=== PATIENT | female | born 1960 | race Two or more races ===

== ENCOUNTER 2019-11-10 13:50 | Outpatient (CLI) | payer OTHER, SELFPAY ==
[2019-11-10 15:15] LABS: Alanine Aminotransferase 24 U/L (4-35); Albumin Level 4.9 g/dL (3.5-5.1); Alkaline Phosphatase 80 U/L (38-126); Aspartate Amino Transferase 38 U/L (14-36); Bilirubin,Total 0.6 mg/dL (0.2-1.3)
== END 2019-11-10 13:51 | disposition home or self-care (01) ==
PROVIDERS: PCP Family Medicine; Visit Provider Family Medicine
DX: R77.8 Other specified abnormalities of plasma proteins (principal)
CPT/HCPCS: 36415; 80076

== ENCOUNTER 2020-01-09 08:12 | Outpatient (CLI) | payer OTHER, SELFPAY ==
--- NOTE | ~2020-01-09 | MM_ITS ---
EXAMINATION: MM screening isaak BI w minnie HISTORY: Screening mammogram TECHNIQUE: Craniocaudal and mediolateral oblique 3-D tomosynthesis images were obtained and synthetic 2-D images were generated. CAD analysis was submitted and interpreted. COMPARISON: No prior mammogram is available for comparison at this institution. BREAST PARENCHYMAL COMPOSITION: The breasts are heterogeneously dense, which may obscure small masses . FINDINGS: There is no evidence of suspicious mass, calcification, or architectural distortion to sugg est malignancy in either breast. There has been no suspicious interval change. IMPRESSION: 1. No mammographic evidence of malignancy. 2. Recommend routine screening mammography in one year. BI-RADS Category 1: Negative Reviewed, dictated and finalized at location A.
== END 2020-01-09 08:13 | disposition home or self-care (01) ==
PROVIDERS: PCP Family Medicine
DX: Z12.31 Encounter for screening mammogram for malignant neoplasm of breast (principal)
CPT/HCPCS: 77063; 77067

== ENCOUNTER 2021-01-21 09:08 | Outpatient (CLI) | payer OTHER, SELFPAY ==
--- NOTE | ~2021-01-21 | MM_ITS ---
EXAMINATION: MM screening isaak BI w minnie HISTORY: Screening mammogram TECHNIQUE: Craniocaudal and mediolateral oblique 3-D tomosynthesis images were obtained and synthetic 2-D images were generated. CAD analysis was submitted and interpreted. COMPARISON: 01/09/2020, 11/01/2018, 08/24/2017 bilateral digital screening mammogram examinations BREAST PARENCHYMAL COMPOSITION: The breasts are heterogeneously dense, which may obscure small masses . FINDINGS: There is no evidence of suspicious mass, calcification, or architectural distortion to sugg est malignancy in either breast. There has been no suspicious interval change. IMPRESSION: 1. No mammographic evidence of malignancy. 2. Recommend routine screening mammography in one year. BI-RADS Category 1: Negative Reviewed, dictated and finalized at location A.
== END 2021-01-21 09:09 | disposition home or self-care (01) ==
LOC: ANHIMG 09:11
PROVIDERS: PCP Family Medicine; Visit Provider Family Medicine
DX: Z12.31 Encounter for screening mammogram for malignant neoplasm of breast (principal)
CPT/HCPCS: 77063; 77067

== ENCOUNTER 2022-03-03 07:26 | Outpatient (CLI) | payer OTHER, SELFPAY ==
--- NOTE | ~2022-03-03 | MM_ITS ---
EXAMINATION: MM screening isaak BI w minnie HISTORY: Screening TECHNIQUE: Craniocaudal and mediolateral oblique 3-D tomosynthesis images were obtained and synthetic 2-D images were generated. CAD analysis was submitted and interpreted. COMPARISON: Comparison to multiple prior studies sequentially, with oldest reviewed study dated 07/10. BREAST PARENCHYMAL COMPOSITION: The breasts are heterogenously dense, which may obscure small masses FINDINGS: There is no evidence of suspicious mass, calcification, or architectural distortion to sugg est malignancy in either breast. There has been no suspicious interval change. IMPRESSION: 1. No mammographic evidence of malignancy. 2. Recommend routine screening mammography in one year. BI-RADS Category 1: Negative Reviewed, dictated and finalized at location A.
== END 2022-03-03 07:27 | disposition home or self-care (01) ==
PROVIDERS: PCP Family Medicine; Visit Provider Family Medicine
DX: Z12.31 Encounter for screening mammogram for malignant neoplasm of breast (principal)
CPT/HCPCS: 77063; 77067

== ENCOUNTER 2023-06-08 07:41 | Outpatient (CLI) | payer OTHER, SELFPAY ==
--- NOTE | ~2023-06-08 | MM_ITS ---
EXAMINATION: MM screening isaak BI w minnie HISTORY: Screening mammogram, family history of breast cancer in her sister. TECHNIQUE: Craniocaudal and mediolateral oblique 3-D tomosynthesis images were obtained and synthetic 2-D images were generated. CAD analysis was submitted and interpreted. COMPARISON: 03/03/2022, 01/21/2021, 01/09/2020 BREAST PARENCHYMAL COMPOSITION: The breasts are heterogeneously dense, which may obscure small masses . FINDINGS: No suspicious mass, calcification, or architectural distortion are identified in either consuelo ast to suggest malignancy. There has been no suspicious interval change. IMPRESSION: 1. No mammographic evidence of malignancy. 2. Recommend routine screening mammography in one year. BI-RADS Category 1: Negative Reviewed, dictated and finalized at location A.
== END 2023-06-08 07:42 | disposition home or self-care (01) ==
LOC: ANHIMG 07:45
PROVIDERS: PCP Family Medicine
DX: Z12.31 Encounter for screening mammogram for malignant neoplasm of breast (principal)
CPT/HCPCS: 77063; 77067

== ENCOUNTER 2023-11-14 14:53 | Emergency (ER) | payer OTHER, SELFPAY ==
[2023-11-14 15:04] VITALS: BP 177/61; PULSE 64; RESP 16; TEMP 36.9; O2SAT 100
--- NOTE | 2023-11-14 15:07 | ED.URI ---
HPI - URI/Sore Throat General Chief Complaint: Upper Respiratory Infection Stated Complaint: Cough Source: patient Mode of arrival: ambulatory Limitations: no limitations History of Present Illness HPI Narrative: 62 year old female presented for complaint cough and chest congestion for about 2 weeks. She has been taking DayQuil without relief. She denies shortness of breath, wheezing nausea vomiting diarrhea, lethargy, fevers or chills. Related Data Home Medications Medication Instructions Recorded Confirmed metoprolol succinate 100 mg 100 mg PO DAILY 11/14/23 11/14/23 tablet,extended release 24 hr metoprolol succinate 50 mg 50 mg PO DAILY 11/14/23 11/14/23 tablet,extended release 24 hr olmesartan 20 1 tablet PO DAILY 11/14/23 11/14/23 mg-hydrochlorothiazide 12.5 mg tablet Allergies Allergy/AdvReac Type Severity Reaction Status Date / Time isotretinoin Allergy Other Verified 11/14/23 14:57 Review of Systems Review of Systems: CONSTITUTIONAL: Denies body aches, fever, chills, or sweats. EYES: Denies visual changes, redness, or discharge. ENT: Denies rhinorrhea, congestion, sore throat, or otalgia. CARDIOVASCULAR: Denies chest pain, palpitations, or edema. RESPIRATORY: Reports cough, Denies sob, wheezing. GASTROINTESTINAL: Denies abdominal pain, nausea, vomiting, or diarrhea. SKIN: Denies rash, itching, or wounds. MUSCULOSKELETAL: Denies back pain, joint pain, or myalgia. NEUROLOGIC: Denies headache, numbness, tingling, or weakness. All systems reviewed & are unremarkable except as noted in HPI and below [facility] Comments At time of signature, I have reviewed and agree with nursing past medical, surgical, social and family history unless otherwise noted. Please see nursing chart for further information. There is no relevant family history pertinent to the presenting complaint Exam Narrative: GENERAL: Well-appearing, in no acute distress. EYES: EOMI. No redness or drainage. Conjunctivae normal. ENT: Mucous membranes pink and moist. No rhinorrhea. TMs normal bilaterally. Throat normal. Uvula midline. NECK: Normal AROM. Supple. CHEST: No respiratory distress. Lungs clear to all serrano. frequent nonproductive cough HEART: Regular rate and rhythm. No murmur appreciated. SKIN: Warm, dry, no rash. Capillary refill normal. Normal skin turgor. NEURO: Alert and oriented x3. Gait steady. PSYCH: Normal affect. Course Course Emergency Course: Patient is aware of diagnosis, understands and agrees to treatment plan. Anticipatory guidance given. Patient agrees to follow-up as directed and is aware of reasons to seek care at the emergency department. Portions of this record may have been created with voice recognition software Level of Care: Express Care Visit Vital Signs Vital signs: Vital Signs Temperature 98.4 F 11/14/23 15:04 Pulse Rate 64 11/14/23 15:04 Respiratory Rate 16 11/14/23 15:04 Blood Pressure 177/61 H 11/14/23 15:04 Pulse Oximetry 100 11/14/23 15:04 Oxygen Delivery Room Air 11/14/23 15:04 Temperature 98.4 F 11/14/23 15:04 Pulse Rate 64 11/14/23 15:04 Respiratory Rate 16 11/14/23 15:04 Blood Pressure 177/61 H 11/14/23 15:04 Pulse Oximetry 100 11/14/23 15:04 Oxygen Delivery Room Air 11/14/23 15:04 MDM - URI/Sore Throat MDM Narrative Medical decision making narrative: Discussed physical exam findings. Advised supportive measures and signs/symptoms to go to the ER. Pt is appropriate for outpt treatment and f/u. Differential Diagnosis Differential diagnosis: Likely upper respiratory infection, sinusitis, viral infection and bronchitis Discharge Plan Discharge Clinical Impression: Bronchitis Patient Disposition: Home, Self-Care Condition: Stable Instructions: Antibiotic Form, Acute Bronchitis (ED) Additional Instructions: Take medication as directed over the counter Cough syrup may cause drow
== END 2023-11-14 15:20 | disposition home or self-care (01) ==
PROVIDERS: Emergency Provider Nurse Practitioner Family; PCP Family Medicine
DX: J40 Bronchitis, not specified as acute or chronic (principal); I10 Essential (primary) hypertension
CPT/HCPCS: 99213; G0463

== ENCOUNTER 2024-09-03 14:19 | Outpatient (CLI) | payer OTHER, SELFPAY ==
--- NOTE | ~2024-09-03 | MM_ITS ---
EXAMINATION: MM screening isaak BI w minnie HISTORY: Screening TECHNIQUE: Craniocaudal and mediolateral oblique 3-D tomosynthesis images were obtained and synthetic 2-D images were generated. CAD analysis was submitted and interpreted. COMPARISON: 06/08/2023 and dating back to 11/01/2018 BREAST PARENCHYMAL COMPOSITION: The breasts are heterogeneously dense, which may obscure small masses . FINDINGS: Stable parenchymal pattern without suspicious microcalcifications, architectural distortion, discrete masses or significant asymmetry. IMPRESSION: 1. No mammographic evidence of malignancy. 2. Recommend routine screening mammography in one year. BI-RADS Category 1: Negative Reviewed, dictated and finalized at location A. R [place]
== END 2024-09-03 14:20 | disposition home or self-care (01) ==
PROVIDERS: PCP Family Medicine; Visit Provider Family Medicine
DX: Z12.31 Encounter for screening mammogram for malignant neoplasm of breast (principal)
CPT/HCPCS: 77063; 77067

== ENCOUNTER 2024-10-18 09:23 | Emergency (ER) | payer OTHER, SELFPAY ==
--- NOTE | 2024-10-18 09:26 | ED.URI ---
HPI - URI/Sore Throat General Chief Complaint: Upper Respiratory Infection Stated Complaint: cold coming back fever,cough Time Seen by Provider: 10/18/24 09:25 Source: patient Mode of arrival: ambulatory Limitations: no limitations History of Present Illness HPI Narrative: Iwona is a 64-year-old female patient presenting to the clinic today with complaints fever, congestion, and cough for the past week. She reports she had a cold last week, had gotten a little bit better, but feels as though it has come back. Denies any chest pain or shortness of breath. Fever as high as 101.8 MD elicited complaint: fever, cough and nasal congestion Related Data Home Medications ?Medication ?Instructions ?Recorded ?Confirmed ?Last Taken ?Type metoprolol succinate 100 mg 100 mg PO DAILY 11/14/23 10/18/24 Unknown History tablet,extended release 24 hr metoprolol succinate 50 mg 50 mg PO DAILY 11/14/23 10/18/24 Unknown History tablet,extended release 24 hr olmesartan 20 1 tablet PO DAILY 11/14/23 10/18/24 Unknown History mg-hydrochlorothiazide 12.5 mg tablet diltiazem HCl 120 mg 120 mg PO Q24H 10/18/24 10/18/24 Unknown History capsule,extended release 24 hr fluocinonide 0.05 % topical 1 applic topical DAILY 10/18/24 10/18/24 Unknown History solution Allergies Allergy/AdvReac Type Severity Reaction Status Date / Time isotretinoin Allergy Other Verified 10/18/24 09:28 Review of Systems Review of Systems: Pertinent positives per HPI. Patient denies any rash, headache, visual changes, dizziness, shortness of breath, chest pain, palpitations, nausea, vomiting, diarrhea, constipation, abdominal pain, or any urinary issues. [facility] Comments At the time of my signature, I reviewed and agree with the nursing past medical, surgical, social, and family history. There is no relevant family history pertinent to the patient complaint. Exam Narrative: General: Well-developed, well nourished, in no apparent distress Head: Normocephalic, atraumatic Eyes: Pupils equally round and reactive to light bilaterally, EOM intact, sclera and conjunctive clear, no discharge, lids normal Ears: TMs intact and clear, ear canals clear, no drainage, grossly hearing normal. Nose: Nares patent, clear nasal discharge, no inflammation, no sinus tenderness. Mouth: Oral pharynx without lesions or masses, good dentition, MMM. Neck: Supple, trachea midline, no enlargement of anterior or posterior cervical nodes, no thyroid masses or goiter palpable. Cardio: Regular rate and rhythm, s1 and s2 normal, no murmur appreciated. Resp: Clear to auscultation bilaterally, no rhonchi, rales, wheezing or rubs Course Course Emergency Course: Portions of this record may have been created with voice recognition software. Level of Care: Express Care Visit Vital Signs Vital signs: Vital Signs Temperature 37.2 C 10/18/24 09:32 Pulse Rate 73 10/18/24 09:32 Respiratory Rate 16 10/18/24 09:32 Blood Pressure 153/64 H 10/18/24 09:32 Pulse Oximetry 98 10/18/24 09:32 Oxygen Delivery Room Air 10/18/24 09:32 Temperature 37.2 C 10/18/24 09:32 Pulse Rate 73 10/18/24 09:32 Respiratory Rate 16 10/18/24 09:32 Blood Pressure 153/64 H 10/18/24 09:32 Pulse Oximetry 98 10/18/24 09:32 Oxygen Delivery Room Air 10/18/24 09:32 Vital signs reviewed MDM - URI/Sore Throat MDM Narrative Medical decision making narrative: At the time of visit patient is resting comfortably on the exam table. Patient appears to be nontoxic. Labs: COVID testing was negative. Influenza was positive for influenza A. Plan: Patient has influenza A. Lung sounds are clear, oxygen saturation is 98%, and she denies any shortness of breath or chest pain. Supportive measures were discussed with the patient and they voiced understanding discharge instructions and agrees to treatment plan. Return precautions reviewed Differential Diagnosis Differential diagnosis: Likely upper respiratory infection, otitis media, sinusitis, viral infection, bronchitis, influenza, pharyngitis and other (COVID) Lab Data Labs: Lab Results 10/18/24 Range/Units 09:35 POC Influenza A Ag Positive (Negative) POC Influenza B Ag Negative (Negative) POC SARS CoV-2 Ag Negative (Negative) Discharge Plan Discharge Clinical Impression: Influenza A Patient Disposition: Home, Self-Care Condition: Stable Instructions: Antibiotic Form, Influenza (ED) Additional Instructions: COVID testing is negative. Influenza testing is positive for influenza A. May take Coricidin HBP for cold and flu symptoms Increase fluids and stay well hydrated Tylenol/motrin for pain/fever Flonase and OTC antihistamines as directed Vicks vapor rub to open sinuses Sinus rinses for congestion Cepacol spray, cough drops, throat lozenges, warm tea with honey/lemon, gargle salt water to soothe throat BRAT diet for diarrhea Clear liquids x 24 hours then advance as tolerated for nausea/vomiting Go to the ED if you develop a worsening in your condition- high fever not controlled by Tylenol or Motrin, dehydration, weakness, lethargy, shortness of breath, or chest pain. Follow up with your PCP in 3-5 days if symptoms persist. Patient Language: Belarusian Prescriptions: No Action diltiazem HCl 120 mg capsule,extended release 24hr 120 mg PO Q24H fluocinonide 0.05 % solution 1 applic TOPICAL DAILY metoprolol succinate 50 mg tablet extended release 24 hr 50 mg PO DAILY metoprolol succinate 100 mg tablet extended release 24 hr 100 mg PO DAILY olmesartan-hydrochlorothiazide 20-12.5 mg tablet 1 tablet PO DAILY Follow-up/Referrals: Ann Marie,Erik Villa MD [Primary Care Provider] - Time of Disposition: 09:47 Quality NIHSS Nursing Documentation ED NIHSS nursing documentation: reviewed/agree
[2024-10-18 09:32] VITALS: BP 153/64; PULSE 73; RESP 16; TEMP 37.2; O2SAT 98
[2024-10-18 09:52] LABS: EDCOVIDSCREEN Negative (Negative); EDINFLUASCREEN Positive (Negative); EDINFLUBSCREEN Negative (Negative)
== END 2024-10-18 09:59 | disposition home or self-care (01) ==
PROVIDERS: Emergency Provider Nurse Practitioner Family; PCP Family Medicine
DX: J10.1 Influenza due to other identified influenza virus with other respiratory manifestations (principal); Z20.822 Contact with and (suspected) exposure to COVID-19; I10 Essential (primary) hypertension
CPT/HCPCS: 87426; 87804; 99212; G0463

== ENCOUNTER 2025-09-06 14:30 | Outpatient (CLI) | payer OTHER, SELFPAY ==
--- NOTE | ~2025-09-06 | MM_ITS ---
EXAMINATION: MM screening isaak BI w minnie HISTORY: Screening. TECHNIQUE: Craniocaudal and mediolateral oblique 3-D tomosynthesis images were obtained and synthetic 2-D images were generated. CAD analysis was submitted and interpreted. COMPARISON: 2023, 2022, and 2021. BREAST PARENCHYMAL COMPOSITION: Dense: The breasts are extremely dense, which may obscure noncalcified lesions. FINDINGS: No suspicious masses are seen. There are no suspicious calcifications. No unexplained architectural distortion is seen. There are no skin or nipple abnormalities identified. There is no adenopathy seen on the images submitted. IMPRESSION: No mammographic evidence to suggest malignancy is seen. The patient may return to screening mammography as per ACR guidelines. BI-RADS 1 - Negative. Reviewed, dictated and finalized at location C. [employer]
--- OUTSIDE RECORDS SUMMARY | 2025-09-06 14:45 | XMS_ITS | Encounter Summary ---
Author Organization [facility]/Health system Facility Care Team Providers Care Bowling Or Skating Front Desk Clerk Name Role Phone Erik Jesus DO Primary Care Provider + Encounter Details Date Type Department Care Team (Latest Contact Info) Description 09/18/2018 Orders Only [facility] Provider, MD Lou [address] [place] [id number] Social History Tobacco Use Types Packs/Day Years Used Date Smoking Tobacco: Never Assessed Comments Unknown Sex and Gender Information Value Date Recorded Sex Assigned at Not on file Legal Sex Female 7:04 PM AUDIO SPECIALIST Gender Identity Female 08/21/2020 10:45 AM AUDIO SPECIALIST Sexual Orientation Straight 08/21/2020 10 :45 AM AUDIO SPECIALIST documented as of this encounter Plan of Treatment Not on file documented as of this encounter Procedures Procedure Name Priority Date/Time Associated Diagnosis Comments SCAN - LABS 09/24/2018 12:00 AM AUDIO SPECIALIST documented in this encounter Results * SCAN - LABS (09/24/2018 12:00 AM AUDIO SPECIALIST) Narrative 09/24/2018 12:00 AM AUDIO SPECIALIST Ordered by an unspecified provider. Historical Provider Final Res ult documented in this encounter Visit Diagnoses Not on filedocumented in this encounter Care Teams Bowling Or Skating Front Desk Clerk Relationship Specialty Start Date End Date Erik Jesus DO PCP - General Family Medicine 04/06/19 documented as of this encounter
--- OUTSIDE RECORDS SUMMARY | 2025-09-06 14:45 | XMS_ITS | Encounter Summary ---
Author Organization 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 Historical Provider Final Res ult documented in this encounter Visit Diagnoses Not on filedocumented in this encounter Care Teams Civil Engineering Technician Relationship Specialty Start Date End Date Erik Jesus DO PCP - General Family Medicine 04/06/19 documented as of this encounter
--- OUTSIDE RECORDS SUMMARY | 2025-09-06 14:45 | XMS_ITS | Data Portability ---
Author Organization [facility] DYANRegina Address [address] [place] [id number] Assessment No assessment recorded. Plan of Treatment Reminders Order Date Submit Date Provider Last Modified By Organization Details Last Modified Time Details Appointments ANY 15 2025 03:30P Aileen Jesus, DO Not available Not available Not available Lab CBC w/ auto diff 2024 025 [facility], [address] [place] [address], [id number], 12/16/2024 16:12:54 BMP, serum or plasma 2024 025 [facility], [address] [place] [address], [id number], 12/16/2024 16:13:03 TSH + free T4, serum 2024 025 [facility], [address] [place] [address], [id number], 12/16/2024 16:13:12 lipid panel, serum 2024 025 [facility], [address] [place] [address], [id number], 12/16/2024 16:13:28 hepatic functio n panel, serum 2024 025 [facility], [address] [place] [address], [id number], 12/16/2024 16:13:40 urinaly sis, dipstic k 2023 024 [place] [id number] In-Office Order, Internal Use Only DO Not Attach Compendium DO Not Attach Compendium, Do Not Delete/merge, [id number] 10/29/2023 17:51:30 CBC w/ auto diff [address] [facility], [address] [place] [address], [id number], 10/29/2023 17:51:30 lipid panel, serum [address] [facility], [address] [place] [address], [id number], 10/29/2023 17:51:30 BMP, serum or plasma [address] [facility], [address] [place] [address], [id number], 10/29/2023 17:51:30 hepatic functio n panel, serum 2023 024 [facility], [address] [place] [address], [id number], 11/02/2023 15:11:29 Referral None recorde d. Procedures None recorde d. Surgeries None recorde d. Imaging None recorde d. Medication Orders Macrobi d 100 mg capsule 2023 024 [email or web address], [address] [place] [address], [id number], 11/19/2024 12:42:54 metopro lol succina te ER 50 mg tablet, extende d release 24 hr 2023 024 [facility], [address] [place] [address], [id number], 11/26/2024 16:47:45 olmesar link 20 mg-hydr ochloro thiazid e 12.5 mg tablet 2023 024 [email or web address] [employer], [address] [place], [id number], 10/29/2023 17:51:30 Patient TargetsNo targets recorded. Patient InstructionsNo instructions recorded. Reason for Referral None Reported. Results Created Date Observation Date Name Description Value Unit Range Abnormal Flag Note LastModifiedBy Organization Detail LastModifiedTime 10/29/19 24 10/29/2023 urina lysis , dipst ick Leukocytes Large Not Available In-Offi ce Order Internal Use Only DO Not Attach Compendium DO Not Attach Compendium, Do Not Delete/merge, 10/29/2023 16:58:42 10/29/1910/29/2023 urina lysis , dipst ick Nitrite negati ve Not Available In-Office Order Internal Use Only DO Not Attach Compendium DO Not Attach Compendium, Do Not Delete/merge, 10/29/2023 16:58:42 10/29/1910/29/2023 urina lysis , dipst ick Urobilinogen .2 Not Available In-Of fice Order Internal Use Only DO Not Attach Compendium DO Not Attach Compendium, Do Not Delete/merge, 10/29/2023 16:58:42 10/29/1910/29/2023 urina lysis , dipst ick Protein Negati ve Not Available In-Office Order Internal Use Only DO Not Attach Compendium DO Not Attach Compendium, Do Not Delete/merge, 10/29/2023 16:58:42 10/29/1910/29/2023 urina lysis , dipst ick pH 7.0 Not Available In-Office Order Internal Use Only DO Not Attach Compendium DO Not Attach Compendium, Do Not Delete/merge, 10/29/2023 16:58:42 10/29/1910/29/2023 urina lysis , dipst ick Blood Non-He molyze d: Trace Not Available In-Office Order Internal Use Only DO Not Attach Compendium DO Not Attach Compendium, Do Not Delete/merge, 10/29/2023 16:58:42 10/29/19 24 10/29/2023 urina lysis , dipst ick Specific Tok 1.010 Not Available In-Off ice Order Internal Use Only DO Not Attach Compendium DO Not Attach Compendium, Do Not Delete/merge, [id number] 10/29/2023 16:58:42 10/29/19 24 10/29/2023 urina lysis , dipst ick Ketone Negati ve Not Available In-Office Order Internal Use Only DO Not Attach Compendium DO Not Attach Compendium, Do Not Delete/merge, [id number] 10/29/2023 16:58:42 10/29/19 24 10/29/2023 urina lysis , dipst ick Bilirubin Negati ve Not Available In-Office Order Internal Use Only DO Not Attach Compendium DO Not Attach Compendium, Do Not Delete/merge, [id number] 10/29/2023 16:58:42 10/29/19 24 10/29/2023 urina lysis , dipst ick Glucose Negati ve Not Available In-Office Order Internal Use Only DO Not Attach Compendium DO Not Attach Compendium, Do Not Delete/merge, [facility] 10/29/2023 16:58:42 10/29/19 24 10/29/2023 urina lysis , dipst ick Appearance Clear Not Available In-Offi ce Order Internal Use Only DO Not Attach Compendium DO Not Attach Compendium, Do Not Delete/merge, [facility] 10/29/2023 16:58:42 10/29/19 24 10/29/2023 urina lysis , dipst ick Color Pale Yellow Not Available In-Office Order Internal Use Only DO Not Attach Compendium DO Not Attach Compendium, Do Not Delete/merge, [facility] 10/29/2023 16:58:42 08/28/20 24 03/04/2023 cervi kadi liban r juan tariq (PROC ) No observ ation record ed. BARCODE Not Available 2023 11:49:21 Result Notes None recorded. Problems Name Problem SNOMED Code Status Onset Date Resolution Date Notes Provider Name and Address Organization Details Recorded Time Adult health examination Active 2023 Erik Jesus, Attn: Javier g,[address] [facility], [place], [address], [facility] 4 08:53:27 Essential hypertension 63486567 Active 2023 Erik Jesus DO Attn: Javier rosario,[address] [facility], [place], [address], [facility] 4 08:53:28 Notes:Some problems listed i n Document: #[id number] could not be added to this patient's chart. Please review this document and add these problems to the patient's chart manually as needed. Problem Notes None recorded. Procedures Surgical History Date Name Laterality Status Provider Name and Address Organization Details Recorded Time [facility]29/2023 17:36:41 Dilation and Curettage completed [facility] 10/29/2023 17:36:47 Imaging Results None recorded. Procedure Notes None recorded. Medical Equipment None Reported. Allergies No known drug allergies Medications Name Sig Start Date Stop Date Status Note LastModified by Organization Details LastModified Time azithromyci n 250 mg tablet 11/19 completed Not Available Not Available Not Available benzonatate 200 mg capsule 11/19 completed Not Available Not Available Not Available metoprolol succinate ER 50 mg tablet,exte nded release 24 hr Take 1 tablet every day by oral route for 90 days. 11/26 completed Not Available Not Available Not Available prednisone 20 mg tablet 11/19 completed Not Available Not Available Not Available metoprolol succinate ER 100 mg tablet,exte nded release 24 hr Take 1 tablet every day by oral route for 30 days. active Not Available Not Available No t Available diltiazem CD 120 mg capsule,ext ended release 24 hr Take 1 capsule every day by oral route for 30 days. active Not Available Not Available No t Available metoprolol succinate ER 25 mg tablet,exte nded release 24 hr 10/29 completed Not Available Not Available Not Available fluocinonid e 0.05 % topical solution APPLY TO THE AFFECTED AREA(S) BY TOPICAL ROUTE 2 TIMES PER DAY NEEDED active Not Available Not Available No t Available olmesartan 20 mg-hydrochl orothiazide 12.5 mg tablet TAKE 1 TABLET BY MOUTH EVERY DAY 2024 active Not Available Not Available Not Avai lable nitrofurant oin monohydrate /macrocryst als 100 mg capsule Take 1 capsule twice a day by oral route for 7 days. 11/19 completed Not Available Not Available Not Available vitamin E 1 tab daily active Not Available Not Available No t Available Multiple Vitamins 1 tab daily active Not Available Not Available No t Available Vitamin D3 1 tab daily active Not Available Not Available No t Available Vitals Date Recorded Body temperature Respiratory rate Oxygen saturation Heart rate Body weight Body mass index (BMI) Body height Systolic And Diastolic Provider Name and Address Organization Details Last Updated DateTime 97.9 [degF] 16 /min 96 % 85 /min 70870.6 7 g 22.8 kg/m2 163.83 cm 128/80 mm[Hg] Kady Hill [facility] 16:31:26 Date Recorded Systolic And Diastolic Provider Name and Address Organization Details Last Updated DateTime 11/26/2024 128/84 mm[Hg] Zenaida Green Attn: [employer] [place], [address], [facility] 11/26/2024 17:45:30 Date Recorded Body height Body mass index (BMI) Body weight Provider Name and Address Organization Details Last Updated DateTime 11/26/2024 162.56 cm 23.1 kg/m2 24107.83 g Soni Gonzales MA [facility] 11/26/2024 16:47:21 Social History Question Answer Notes LastModified by [employer] Details LastModified Time Tobacco Smoking Status Never Smoker [facility] 10/29/2023 17:36:33 What Is Your Level Of Caffeine Consumption? Occasional Information not available 11/26/2024 What Was The Date Of Your Most Recent Tobacco Screening? 11/26/2024 Information not available 11/26/2024 Has Tobacco Cessation Counseling Been Provided? No Information not available 11/26/2024 Sex: Unknown Functional Status Question Answer Note LastModified by [employer] Details LastModified Time Do you use any illicit or recreational drugs? No Information not available 11/26/2024 Do you or have you ever used any other forms of tobacco or nicotine? No Information not available 11/26/2024 What is your level of alcohol consumption? None [email or web address] Information not available 10/29/2023 Mental Status None recorded. Family History Relationship Description Onset Age of this Age Resolved Age Notes LastModified by Organization Details LastModified Time Mother Cerebrovascu lar accident [email or web address] Not available 17:36:14 Mother Hypertensive disorder Not available 2023 17:36:20 Medical History Condition Response Coronary Artery Disease N Other N High Blood Pressure Y Atrial Fibrillation N Thyroid Problems N Kidney or Bladder Problems N GI Problems N Depression N COPD N Blood Clots N Have you had a mammogram in the last yea r? N Skin Problems N Eating Disorder N Anemia N Heart Attack ([place]) N Anxiety Disorder N Diabetes N Muscle, Joint, or Bone Problems N Arthritis N Seizures/Epilepsy N Have you had a colonoscopy in the last 1 0 years? N Acid Reflux (GERD) N Cancer N Stroke N Asthma N Allergies N Have you had a PSA blood test in the las t year? N ADHD N Substance Abuse N High Cholesterol N Hepatitis N Liver Disease N Schizophrenia N Headaches N Heart Failure N Osteoporosis N Gynecological HistoryNo gynecological history recorded. Obstetrics History GPAL:G 0 P 0 0 0 0 Past Encounters Encounter ID Performer Location Encounter Start Date Encounter Closed Date Diagnosis/Indication Diagnosis SNOMED-CT Code Diagnosis ICD10 Code Diagnosis IMO Codes Diagnosis Note [id number] Erik Jesus, DO [facility] [place] [facility] [place] [address] [facility] [address] [place] [address] 10/29/2023 16:22:07 10/31/2023 09:54:55 Essential hypertension 12399090 I10 Metoprolol XL 50 mg extended release tablet dailyOlmes jolynn/hydr ochlorothi azide 20/12.5 mg daily Benicar HCT 20/12.5 mgStable Adult heal th examination 969835702 Z00.00 Due for routine blood workDue for a mammogram May4Due for colon cancer screening July 2029 Acute cystitis 29858839 N30.00 macrobid 100 mg bid 1 week [id number] Erik Jesus, DO [facility] [place] [facility] [address] [facility] [address] [place] [address] 11/26/2024 16:07:10 12/01/2024 15:23:11 Adult health examination 904482812 Z00.00 Due for routine blood workDue for a mammogram May 2025Due for colon cancer screening July 2029 Health Concerns Section Related Observation LastModified by Organization Detai ls LastModified Time None Recorded Concern Status LastModified by Organization Details LastModified Time None Recorded Advance Directives Directive None Recorded Payers Insurance Date Sequence Insurance Name Policy Number Policy Parrish Covered Member ID Parrish Member ID Guarantor Name 12/01/2024 1 [facility] [id number] Iwona Burt [id number] Iwona Burt Notes Date Note Type Note Provider Name and Address Organization Details Recorded Time 10/29/2023 text/html Establish care Erik Jesus DO Attn: [employer] [place], [address], [facility] 10/29/2023 18:19:52 11/26/2024 text/html [facility] Erik Jesus DO Attn: [employer] [place], [address], [facility] 11/26/2024 19:33:26 OBGyn Episode No OBEpisode recorded.
--- OUTSIDE RECORDS SUMMARY | 2025-09-06 14:45 | XMS_ITS | Encounter Summary ---
Author Organization [facility] Facility Care Team Providers Care Harbour Master Name Role Phone Erik Jesus DO Primary Care Provider + Encounter Details Date Type Department Care Team (Latest Contact Info) Description 03/10/2016 Orders Only [facility]INCON[facility] ProviderLou MD [address] [place] [id number] Social History Tobacco Use Types Packs/Day Years Used Date Smoking Tobacco: Never Assessed Comments Unknown Sex and Gender Information Value Date Recorded Sex Assigned at Not on file Legal Sex Female 7:04 PM [employer] SUR[employer] WORK[employer] Gender Identity Female 08/21/2020 10:45 AM [employer]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 Historical Provider Final Res ult * SCAN - LABS (03/13/2016 12:00 AM CDT) Narrative 03/13/2016 12:00 AM CDT Ordered by an unspecified provider. Historical Provider Final Res ult documented in this encounter Visit Diagnoses Not on filedocumented in this encounter Care Teams Harbour Master Relationship Specialty Start Date End Date Erik Jesus DO PCP - General Family Medicine 04/06/19 documented as of this encounter
--- OUTSIDE RECORDS SUMMARY | 2025-09-06 14:45 | XMS_ITS | Encounter Summary ---
Author Organization [facility] Facility Care Team Providers Care Systems Program Manager Name Role Phone Erik Jesus DO Primary Care Provider + Encounter Details Date Type Department Care Team (Latest Contact Info) Description 02/25/2017 Orders Only [facility] CLINCONV ProviderLou MD [address] [place] [address] Social History Tobacco Use Types Packs/Day Years Used Date Smoking Tobacco: Never Assessed Comments Unknown Sex and Gender Information Value Date Recorded Sex Assigned at Not on file Legal Sex Female 7:04 PM [employer] Gender Identity Female 08/21/2020 10:45 AM [employer] Sexual Orientation Straight 08/21/2020 10 :45 AM [employer]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 Historical Provider Final Res ult documented in this encounter Visit Diagnoses Not on filedocumented in this encounter Care Teams Systems Program Manager Relationship Specialty Start Date End Date Erik Jesus DO PCP - General Family Medicine 04/06/19 documented as of this encounter
--- OUTSIDE RECORDS SUMMARY | 2025-09-06 14:45 | XMS_ITS | Clinical Summary ---
Author Organization [facility] [place] [facility] Address [address] [place] [address] Care Team Providers Care Inside B2B Sales Name Role Phone Erik Jesus DO Primary Care Provider + Allergies No known active allergies Medications multivitamin tabletIndications :Vitamin Deficiency Prevention Take 1 tablet by mouth Active vitamin D3-vitamin K2 25 mcg (1,000 unit)-90 mcg tablet,disintegra ting Take 2,000 Units by mouth Active metoprolol XL (TOPROL-XL) 100 mg 24 hr tablet TAKE 1 TABLET BY MOUTH EVERY DAY 90 tablet 5 5 Active olmesartan-hydroc hlorothiazide (BENICAR HCT) 40-12.5 mg per tabletIndications :Essential hypertension Take 1 tablet by mouth daily 30 tablet 11 5 02/03/20 26 Active dilTIAZem CD 120 mg 24 hr capsule TAKE 1 CAPSULE BY MOUTH EVERY DAY 90 capsule 1 5 Active Active Problems Problem Noted Date Diagnosed Date Abnormal EKG 02/18/2024 Paroxysmal supraventricular tachycardia 10/31/19 24 Family history of arteriosclerotic cardiovascula r disease 10/31/2023 Palpitations 04/30/2023 Assessment & Plan (04/30/2023 5:11 PM CDT): Since she started on the increased dose of the Toprol. She is in normal sinus rhythm with no evidence of palpitations by auscultation of the present time. I will check a 48 hour Holter monitor and make further recommendations/determination from there. New issue Corneal edema 10/31/2020 Assessment & Plan (10/19/2021 4:39 PM CLINICAL CYTOGENETICIST SCIENTIST): Sees optho Superficial punctate keratitis of right eye 09/11 Assessment & Plan (10/19/2021 4:39 PM CLINICAL CYTOGENETICIST SCIENTIST): Sees optho Pseudophakia of both eyes 10/06/2020 Assessment & Plan (10/19/2021 4:39 PM CLINICAL CYTOGENETICIST SCIENTIST): Sees optho Annual physical exam 05/18/2019 Assessment & Plan (10/22/2022 4:47 PM CLINICAL CYTOGENETICIST SCIENTIST): Chart reviewed Sees power house control room operator at [place] Mammogram ut Order lab Colonoscopy Assessment & Plan (10/19/2021 4:39 PM CLINICAL CYTOGENETICIST SCIENTIST): Annual lab Colonoscopy at age 58 Will obtain copy of previous colonoscopy Mammogram aug 2020 Assessment & Plan (08/23/2020 5:07 PM CLINICAL CYTOGENETICIST SCIENTIST): Lab shingrex Assessment & Plan (05/18/2019 4:43 PM CDT): Lab Abnormal laboratory test 08/06/2018 Elevated blood protein 06/11/2018 Essential hypertension 02/26/2017 Assessment & Plan (04/30/2023 5:09 PM CDT): Blood pressure today is stable. She is on metoprolol 50 mg daily along with Benicar HCT 20/12.5 mg daily I will make no changes at the present time Assessment & Plan (12/24/2022 4:07 PM CDT): Chronic condition Not at goal bp sl elevated at home mid 140 Increase toprol xl to 50 mg daily Recheck in 6-8 weeks Assessment & Plan (12/03/2022 4:08 PM CDT): Add toprol xl 25 mg daily Chronic condition Not at goal Assessment & Plan (10/19/2021 4:39 PM CLINICAL CYTOGENETICIST SCIENTIST): Refill med Patient is well controlled. Continue current treatment. Assessment & Plan (10/21/2019 3:36 PM CLINICAL CYTOGENETICIST SCIENTIST): Patient is well controlled. Continue current treatment. Assessment & Plan (05/18/2019 4:41 PM CDT): Patient is well controlled. Continue current treatment. Resolved Problems Problem Noted Date Diagnosed Date Resolved Date Pre-op exam 10/21/2019 08/23/2020 Assessment & Plan (10/21/2019 3:36 PM CLINICAL CYTOGENETICIST SCIENTIST): Cleared Elevated total protein 10/21/201908/23 Assessment & Plan (10/21/2019 3:40 PM CLINICAL CYTOGENETICIST SCIENTIST): Recheck lft's Encounters Date Type Department Care Team Description 09/04/2025 8:40 AM CLINICAL CYTOGENETICIST SCIENTIST Lab [facility] [address] [place] [address] Essential hypertension; Family history of arteriosclerotic cardiovascular disease 08/10/2025 Telephone [facility] [address] [place] [address] Walt Madden DO from Last 3 Months Immunizations Immunization Administration Dates Next Due Influenza, Unspecified 10/22/2022(Deferr ed: Patient Refused),06/09/2022(Deferred: Patient Refused),10/19/2021(Deferred: Patient Refused - pt says she gets sick every time she took it previously) Pfizer SARS-CoV-2 Monovalent Vaccination (12+ Yrs) PURPLE 09/16/2020 Surgical History Surgery Date Site/Laterality Comments CATARACT EXTRACTION 07/10/2020 - 08/08/2020 Right Medical History Medical History Date Comments Hypertension Supraventricular tachycardia Family History Medical History Relation Name Comments No Known Problems Brother 1 No Known Problems Brother 2 Pneumonia Father Hypertension Mother Haris Moncada Stroke Mother Haris Moncada Breast cancer Sister 1 No Known Problems Sister 2 No Known Problems Sister 3 No Known Problems Sister 4 Glaucoma Neg Hx Macular degeneration Neg Hx Relation Name Status Comments Brother 1 Alive Brother 2 Alive Father Mother Haris Moncada Sister 1 Alive Sister 2 Alive Sister 3 Alive Sister 4 Alive Social History Tobacco Use Types Packs/Day Years Used Date Smoking Tobacco: Never Smokeless Tobacco: Never Alcohol Use Standard Drinks/Week Comments Yes 0 (1 standard drink = 0.6 oz pur e alcohol) ocass AUDIT-C Answer Date Recorded Q1: How often do you have a drink containing alc ohol? Monthly or less 04/30/2023 Q2: How many drinks containi ng alcohol do you have on a typical day when you are drinking? 1 or 2 04/30/2023 Q3: How often do you have si x or more drinks on one occasion? Never 04/30/2023 PHQ-2 Answer Date Recorded PHQ-2 Total Score (If total score is 3 or more points, staff should administer the PHQ-9) 0 04/30/2023 Comments No Sex and Gender Information Value Date Recorded Sex Assigned at Not on file Legal Sex Female 7:04 PM CLINICAL CYTOGENETICIST SCIENTIST Gender Identity Female 08/21/2020 10:45 AM CLINICAL CYTOGENETICIST SCIENTIST Sexual Orientation Straight 08/21/2020 10 :45 AM CLINICAL CYTOGENETICIST SCIENTIST Obstetrics History Para Term AB IAB SAB Ectopic Multiple Livin g Live Births 0 0 0 0 0 0 0 0 0 0 0 Last Filed Vital Signs Vital Sign Reading Time Taken Comments Blood Pressure 128/84 08/10/2025 1:03 PM CLINICAL CYTOGENETICIST SCIENTIST Pulse 85 08/10/2025 1:03 PM CLINICAL CYTOGENETICIST SCIENTIST Temperature 36.5 C (97.7 F) 04/30/2023 4:16 PM CDT Respiratory Rate 18 10/31/2023 2:30 PM CLINICAL CYTOGENETICIST SCIENTIST Oxygen Saturation 96% 02/02/2025 3:13 PM CDT Inhaled Oxygen Concentration - - Weight 60.3 kg (132 lb 14.4 oz) 02/02/2025 3:13 PM CDT Height 160 cm (5' 2.99) 02/02/2025 3:13 PM CDT Body Mass Index 23.55 02/02/2025 3:13 PM CDT Plan of Treatment Health Maintenance Due Date Last Done Comments DTaP/Tdap/Td Vaccine (1 - Tdap) 1973 Hepatitis B Screening 1980 Zoster Vaccine (1 of 2) 2012 Cervical Cancer Screening 03/04/2024 03/04/2023 Depression Screening 04/30/2024 04/30/2023, 10/22/2022, 10/19/2021, Additional history exists Breast Cancer Screening-Mammogram 06/08/2024 06/08/2023, 03/03/2022, 01/09/2020 Covid-19 Vaccine (2 - season) 2025 09/16/2020 Influenza Vaccine (#1) 2025 Regular Well Visit/Exam 18-64 06/24/2025 06/24/2024, 03/04/2023, 10/22/2022, Additional history exists Colon Cancer Screening-Colonoscopy 08/04/2029 08/04/2019 Colon Cancer Screening-CT Colonography Discontinued 08/04/2019 Colon Cancer Screening-DNA Stool Discontinued 08/04/2019 Colon Cancer Screening-FIT Discontinued 08/04/2019 Colon Cancer Screening-Sigmoidoscopy Discontinued 08/04/2019 Hepatitis C Screening Completed 08/27/2020 Pneumococcal vaccine <65 Aged Out No longer eligible based on patient's age to complete this topic Procedures Procedure Name Priority Date/Time Associated Diagnosis Comments EGFR Routine 09/04/2025 8:46 AM CLINICAL CYTOGENETICIST SCIENTIST Essential hypertension COMPREHENSIVE METABOLIC PANEL Routine 09/04/2025 8:46 AM CLINICAL CYTOGENETICIST SCIENTIST Essential hypertension LIPID PANEL Routine 09/04/2025 8:46 AM CLINICAL CYTOGENETICIST SCIENTIST Essential hypertension Family history of arteriosclerotic cardiovascular disease SCREENING MAMMOGRAM BILATERAL W ELLY Schedule Routine, Read Routine (OP Routine) 06/08/2023 Well woman exam with routine gynecological exam PAP AND HIGH RISK HPV, REFLEX TO GENOTYPING Routine 03/04/2023 9:57 AM CDT Well woman exam with routine gynecological exam HEPATITIS C ANTIBODY Routine 08/27/2020 8:20 AM CLINICAL CYTOGENETICIST SCIENTIST Annual physical exam COLONOSCOPY Routine 08/04/2019 from Last 3 Months or Most Recently Relevant to Health Maintenance Results * eGFR (09/04/2025 8:46 AM CLINICAL CYTOGENETICIST SCIENTIST) eGFR >90 >=60 mL/min/1. 73 m2 Comment: Interpretive Data Reference Interval Normal >/= 90 mL/min/1.73m2 Mildly decreased* 60 - 89 mL/min/1.73m2 Mildly to moderately decreased 45 - 59 mL/min/1.73m2 Moderately to severely decreased 30 - 44 mL/min/1.73m2 Severely decreased 15 - 29 mL/min/1.73m2 Kidney Failure < 15 mL/min/1.73m2 *Relative to young adult level Estimated glomerular filtration rate is determined by the 2020 CKD-EPI equation recommended by the National Kidney Foundation (A Unifying Approach to GFR Estimation: Recommendations of the NKF-ASK Task Force on Reassessing the Inclusion of Race in Diagnosing Kidney Disease, JASN 2020). The CKD-EPI equation should not be used for patients with unstable renal function and has not been validated in children and those over 70. Current interpretive data was last reviewed 2021. Testing performed by: [address] [address] Blood 09/04/2025 8:46 AM CLINICAL CYTOGENETICIST SCIENTIST 09/04/2025 9:37 AM CLINICAL CYTOGENETICIST SCIENTIST Cassie Hood NP LAB BLOOD ORDERABLES Final Result [facility] [address] [facility] [facility] Department [place] [address] * Lipid panel (09/04/2025 8:46 AM CLINICAL CYTOGENETICIST SCIENTIST) Cholesterol 170 30 - 199 mg/dL Comment: Interpretive Data Ages < or = 19 years Acceptable: <170 mg/dL Borderline high: 170-199 mg/dL High: >or= 200 mg/dL Ages > or = 20 years Desirable: <200 mg/dL Borderline high: 200-239 mg/dL High: >or= 240 mg/dL Literature References: 1. Expert Panel on Integrated Guidelines for Cardiovascular Health and Risk Reduction in Children and Adolescents. Pediatrics 2011;128:S213 2. NCEP Expert Panel. Circulation 2004;110:227 Current Interpretive Data was last revised on 2018. Testing performed by: [address] [address] Triglycerides 104 <=149 mg/dL CHRISTINA PANTOJA Comment: Interpretive Data Ages < or = 9 years Acceptable: <75 mg/dL Borderline high: 75-99 mg/dL High: >or= 100 mg/dL Ages 10 to 20 years Acceptable: <90 mg/dL Borderline high: 90-129 mg/dL High: >or= 130 mg/dL Ages > or = 20 years Desirable: <150 mg/dL Borderline high: 150-199 mg/dL High: 200-499 mg/dL Very high: >or= 499 mg/dL Literature References: 1. Expert Panel on Integrated Guidelines for Cardiovascular Health and Risk Reduction in Children and Adolescents. Pediatrics 2011;128:S213 2. NCEP Expert Panel. Circulation 2004;110:227 Current Interpretive Data was last revised on 2018. Testing performed by: [address] [address] HDL 57 >=40 mg/dL CHRISTINA Comment: Interpretive Data Ages < or = 19 years Acceptable: >45 mg/dL Borderline low: 40-45 mg/dL Low: <40 mg/dL Ages > or = 20 years Desirable: >or= 60 mg/dL Low: <40 mg/dL Literature References: 1. Expert Panel on Integrated Guidelines for Cardiovascular Health and Risk Reduction in Children and Adolescents. Pediatrics 2011;128:S213 2. NCEP Expert Panel. Circulation 2004;110:227 Current Interpretive Data was last revised on 2018. Testing performed by: [address] [address] LDL, calculated 94 <=129 mg/dL CHRISTINA Comment: Interpretive Data Ages < or = 19 years Acceptable: <110 mg/dL Borderline high: 110-129 mg/dL High: >or= 130 mg/dL Ages > or = 20 years Optimal: <100 mg/dL Near optimal: 100-129 mg/dL Borderline high: 130-159 mg/dL High: >160 mg/dL Calculated using the Juve LDL-C estimating equation. This equation was implemented on 2024. Prior to this date LDL-C was estimated using the Friedewald equation. Literature References: 1. Expert Panel on Integrated Guidelines for Cardiovascular Health and Risk Reduction in Children and Adolescents. Pediatrics 2011;128:S213 2. NCEP Expert Panel. Circulation 2004;110:227 3. Juve Gallagher et al. STEPHIE Cardiol. 2019January 07;5(5):540-548. doi: 10.1001/jamacardio.2020.0013 Current Interpretive Data was last revised on 2024. Testing performed by: [address] [address] Non-HDL Cholesterol 113 mg/dL CHRISTINA PANTOJA Comment: Interpretive Data Ages < or = 19 years Acceptable: <120 mg/dL Borderline high: 120-144 mg/dL High: >145 mg/dL Ages > or = 20 years When triglycerides are >200 mg/dL, Non-HDL cholesterol is a secondary target of therapy with treatment goals that are 30 mg/dL greater than the LDL cholesterol target. Literature References: 1. Expert Panel on Integrated Guidelines for Cardiovascular Health and Risk Reduction in Children and Adolescents. Pediatrics 2011;128:S213 2. NCEP Expert Panel. Circulation 2004;110:227 Current Interpretive Data was last revised on 2018. Testing performed by: [address] [address] Chol/HDL ratio 3 CHRISTINA PANTOJA Comment:Testing performed by : [address] [address] Blood 09/04/2025 8:46 AM CLINICAL CYTOGENETICIST SCIENTIST 09/04/2025 9:37 AM CLINICAL CYTOGENETICIST SCIENTIST Cassie Hood NP LAB BLOOD ORDERABLES Final Result [facility] [address] [facility] Department [place] [address] * Comprehensive metabolic panel (09/04/2025 8:46 AM CLINICAL CYTOGENETICIST SCIENTIST) Sodium 141 135 - 145 mmol/L Comment:Testing performed by : [address] [address] Potassium, pl 4.0 3.3 - 4.9 mmol/L CHRISTINA PANTOJA Comment:Testing performed by : [address] [address] Chloride 106 97 - 110 mmol/L CHRISTINA Comment:Testing performed by : [address] [address] CO2 23 22 - 32 mmol/L CHRISTINA Comment:Testing performed by : [address] [address] Anion gap 12 2 - 15 mmol/L CHRISTINA Comment:Testing performed by : [address] [address] BUN 13 6 - 25 mg/dL CHRISTINA Comment:Testing performed by : [address] [address] Creatinine 0.60 0.60 - 1.10 mg/dL CHRISTINA Comment:Testing performed by : [address] [address] Glucose 91 70 - 199 mg/dL [facility] Comment: Interpretive Data Fasting glucose >/= 126 mg/dl is diagnostic for diabetes. Fasting is defined as no caloric intake for at least 8 hours. Fasting glucose between 100 mg/dl to 125 mg/dl is diagnostic of prediabetes. In a patient with classic symptoms of hyperglycemia or hyperglycemic crisis, a random glucose >/= 200 mg/dl is diagnostic for diabetes. In the absence of unequivocal hyperglycemia, results should be confirmed by repeat testing. The classification and Diagnosis of Diabetes Diabetes Care 202; 46: S19-S40. Current interpretive data was last revised 2022. Testing performed by: [address] [address] Calcium 9.8 8.5 - 10.3 mg/dL CHRISTINA Comment:Testing performed by : [address] [address] Bilirubin, total 0.9 0.1 - 1.2 mg/dL CHRISTINA Comment:Testing performed by : [address] [address] Protein, pl 7.6 6.5 - 8.5 g/dL CHRISTINA Comment:Testing performed by : [address] [address] Albumin 4.4 3.5 - 5.0 g/dL CHRISTINA Comment:Testing performed by : [address] [address] Alk phos 63 40 - 130 Units/L CHRISTINA Comment:Testing performed by : [facility], [address] [place] [address]., [address] ALT 16 7 - 45 Units/L CHRISTINA PANTOJA Comment:Testing performed by : [address] [address] AST 24 10 - 45 Units/L CHRISTINA Comment:Testing performed by : [address] [address] Blood 09/04/2025 8:46 AM CLINICAL CYTOGENETICIST SCIENTIST 09/04/2025 9:37 AM CLINICAL CYTOGENETICIST SCIENTIST Cassie Hood NP LAB BLOOD ORDERABLES Final Result [facility] [address] [facility] Department [place] [address] * SCREENING MAMMOGRAM BILATERAL W ELLY (06/08/2023) Anatomical Region Laterality Modality Breast Bilateral Mammography 06/08/2023 Yuliya Perdomo MD IMG MAMMO PROCEDURES Valarie l Result * Pap and High Risk HPV, reflex to Genotyping (03/04/2023 9:57 AM CDT) Thin prep (Pap test) 03/04/2023 9:57 AM CDT 03/06/2023 9:57 AM CDT Narrative [facility] - 03/11/2023 5:28 PM CDT [facility] Department of Pathology [address] [place], [place] [id number] Final Report with Addendum Note to Patients: This report may contain a detailed description of human tissue sent by a health care provider to the laboratory for pathologic evaluation. The content of this report is essential for diagnosis and may provide important critical findings. This information may be unfamiliar to patients to review without a medical professional present. It is advised that the patient review this report in the presence of a health care provider who can answer questions and explain the details. Patient Name: IWONA BURT Address: [address] [place] [address] Gender: F : 1960 (Age: 62) Service: Location: [facility] #: [id number] Patient Type: [facility] SPECIMEN Taken: 03/04/2023 Received: 03/06/2023 Accessioned:: 03/07/2023 Reported: 03/11/2023 Physician(s): Yuliya Perdomo M.D. [facility] Diagnosis: SOURCE OF SPECIMEN SCREENING THIN PREP IMAGED PAP w/ HPV: STATEMENT OF ADEQUACY - Specimen satisfactory for interpretation; indeterminate endocervical component due to marked atrophy GENERAL CATEGORIZATION: - Negative for intraepithelial lesion or malignancy TASHA Arenas(ASCP) Report Electronically Reviewed and Signed Out By JAVID ArenasASC) 03/11/2023 17:28:20Addenda: HPV Test Interpretation NEGATIVE for types 16, 18, 31, 33, 35, 39, 45, 51, 52, 56, 58, 59, 66 and 68. Test performed utilizing Gen-Probe Aptima assay. TASHA Arenas(ASCP)Report Electronically Reviewed and Signed Out By TASHA Arenas(ASC) 03/08/2023 13:45:41 Specimen(s) Received: A: SCREENING THIN PREP IMAGED PAP w/ HPV Clinical History: Menstrual History: Post-menopausal The Pap test is a screening test used to aid in the detection of cervical cancer and its precursors. It should not be the sole means by which malignant and premalignant lesions are diagnosed. Both false negative and false positive results may occur. It also has poor sensitivity for the detection of endometrial lesions and should not be used to evaluate suspected endometrial abnormalities. For these reasons it is most important to obtain Pap tests at regular intervals. The performance characteristics of some immunohistochemical stains, fluorescence in-situ hybridization tests and immunophenotyping by flow cytometry cited in this report (if any) were determined by the Surgical Pathology Department at [facility] as part of an ongoing quality assurance inspector program and in compliance with federally mandated regulations drawn from the Clinical Laboratory Improvement Act of 1988 (CLIA '88). Some of these tests rely on the use of analyte specific reagents and are subject to specific labeling requirements by the US Food and Drug Administration. Such diagnostic tests may only be performed in a facility that is certified by the Department of Health and Human Services as a high complexity laboratory under CLIA '88. The FDA has determined that such clearance or approval is not necessary. This test is used for clinical purposes. It should not be regarded as investigational or for research. Nevertheless, federal rules concerning the medical use of analyte specific reagents require that the following disclaimer be attached to the report: This test was developed and its performance characteristics determined by the Surgical Pathology Department [facility]. It has not been cleared or approved by the U. S. Food and Drug Administration. Yuliya Perdomo MD LAB CYTOLOGY ORDERABLES F inal Result Performing Organization Address [facility] Co de Phone Number PATHOLOGY [facility] * Hepatitis C antibody (08/27/2020 8:20 AM CLINICAL CYTOGENETICIST SCIENTIST) Hep C Ab NONREACT NONREACTIVE [facility] Comment: Siemens CentaurXP using SERGEY (chemiluminescent immunoassay) technology. NONREACTIVE: Antibodies to Hepatitis C not detected. This does not exclude early acute Hepatitis C infection, possibility of exposure to Hepatitis C, antibodies below detection limit, or to lack of antibody reactivity to the antigen used in this assay. EQUIVOCAL: Antibodies to Hepatitis C may or may not be present. Sample to be confirmed by real-time PCR method. REACTIVE: Antibodies to Hepatitis C detected.Sample to be confirmed by real-time PCR method. Blood specimen (specimen) 08/27/2020 8:20 AM CLINICAL CYTOGENETICIST SCIENTIST 08/27/2020 8:48 AM CLINICAL CYTOGENETICIST SCIENTIST Narrative Resulting Agency Comment CLI Erik Jesus DO LAB MICROBIOLOGY - GENER AL ORDERABLES Final Result Performing Organization Address [facility] Co de Phone Number [facility] [address] [place] [address], [facility] [phone] * Colonoscopy (08/04/2019) Anatomical Region Laterality Modality Other Historical Provider ENDOSCOPY PROCEDURES Valarie l Result from Last 3 Months or Most Recently Relevant to Health Maintenance Insurance [facility] Address: [place] [address] [facility] Address: [place] [address] [facility] Address: [place] [address] Care Teams Inside B2B Sales Relationship Specialty Start Date End Date Erik Jesus DO PCP - General Family Medicine 04/06/19
== END 2025-09-06 14:31 | disposition home or self-care (01) ==
PROVIDERS: PCP Family Medicine; Visit Provider Obstetrics & Gynecology
DX: Z12.31 Encounter for screening mammogram for malignant neoplasm of breast (principal)
CPT/HCPCS: 77063; 77067